=== PATIENT | female | born 1990 | race Hispanic/Latino ===

== ENCOUNTER 2016-09-15 12:05 | Inpatient (IN) | payer OTHER ==
[~2016-09-15] VITALS: Ht 147.3 cm; Wt 61.0 kg
[2016-09-15] VITALS (46 sets, daily range): BP systolic 121–163; BP diastolic 64–101
[~2016-09-15 12:05] MED LIST: AMOX500C2 PO; CEPH500T PO; CIPR-225 PO; NITR-65 PO; TRAM50TA2 PO
--- OUTSIDE RECORDS SUMMARY | 2016-09-15 12:23 | XMS REPORT | Continuity of Care Document ---
Author Author [facility] Organization [facility] Address Unknown Phone Unavailable Care Team Providers Care General Service Officer Name Role Phone BORA ARCOS MD PCP Insurance Providers Payer Name Policy Number Subscriber Name Relationship Self Pay Arleen Saleh 18 Self / Same As Patient Advance Directives Directive Response Recorded Date/Time Advance Directives No 04/02/16 11:08am Resuscitation Status Full Code 04/02/16 11:08am Chief Complaint and Reason for Visit Chief Complaint -Female Reason for Visit Subchorionic hemorrhage [id number] Problems Active Problems Medical Problem Onset Date Status Pyelonephritis Unknown Acute Spontaneous Unknown Acute Subchorionic hemorrhage Unknown Acute Threatened miscarriage in early Unknown Acute Urinary tract infection Unknown Acute Urinary tract infection Unknown Acute Medications Current Home Medications Medication Dose Units Route Directions Days/Qty Instructions Start Date Ciprofloxacin Hcl 500 Mg 500 Mg Oral Twice A Day 20 05/30/15 Past Home Medications Medication Directions Ordered Status Nitrofurantoin Macrocrystals 100 Mg Capsule, 1 Each Oral Twice A Day Discontinued Tramadol Hcl 50 Mg Tablet, 50 Mg Oral Every 4HRS as needed for Pain 09/22/14 Discontinued Cephalexin 500 Mg Tablet, 500 Mg Oral Three Times A Day 05/13/15 Discontinued Social History Social History Problem Response Recorded Date/Time Alcohol Use Denies Use 05/30/2015 4:19pm Recreational Drug Use No 05/30/2015 4:19pm Recent Foreign Travel No 04/02/2016 11:06am Recent Infectious Disease Exposure No 04/02/2016 11:06am Hospitalization with Isolation Denies 04/02/2016 11:06am Smoking Status Never a Smoker 04/02/2016 11:08am Recent Hopitalizations No 04/02/2016 11:08am Hospitalization with Isolation Denies 04/02/2016 11:06am Query Response Start Date Stop Date Smoking Status Never a Smoker Hospital Discharge Instructions No hospital discharge instructions. Plan of Care Discharge Date 04/02/16 12:00pm Disposition 01 HOME, SELF-CARE Condition at Discharge Stable Instructions/Education Provided Threatened Miscarriage (DC) Prescriptions See Medication Section Referrals BORA ARCOS MD - Primary Care Physician Additional Instructions/Education 1. 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 Return to ER for any concerns 3. All discharge instructions reviewed with patient and/or family. Voiced understanding. Functional Status No functional status results. Allergies, Adverse Reactions, Alerts No known allergies. Immunizations No immunization records. Vital Signs Acute Vital Signs Vital Response Date/Time Temperature (Fahrenheit) 98.4 degrees F (97.6 - 99.5) 04/02/2016 11:06am Temperature (Calculated Celsius) 36.62545 degrees C (36.4 - 37.5) 04/02/2016 11:06am Temperature Source Temporal 04/02/2016 11:06am Pulse Rate (adult) 62 bpm (60 - 90) 04/02/2016 12:07pm Respiratory Rate 18 bpm (12 - 24) 04/02/2016 12:07pm O2 Sat by Pulse Oximetry 100 % (88 - 100) 04/02/2016 12:07pm Blood Pressure 104/66 mm Hg 04/02/2016 12:07pm Blood Pressure Mean 89 mm Hg 04/02/2016 11:06am Pain Numeric Pain Scale 3 04/02/2016 11:06am Height (Feet) 5 feet 04/02/2016 11:06am Height (Inches) 1 inches 04/02/2016 11:06am Height (Calculated Centimeters) 154.019077 cm 04/02/2016 11:06am Weight (Pounds) 116 pounds 04/02/2016 11:06am Weight (Calculated Kilograms) 52.777450 kilograms 04/02/2016 11:06am Capillary Refill Capillary Refill Less Than 3 Seconds 04/02/2016 11:06am Height 5 ft 1 in Weight 116 lb Body Mass Index 21.9 kg/m^2 Results Pending Laboratory Results Test Name Collection Date/Time Procedures No known history of procedures. Encounters Encounter Location Arrival/Admit Date Discharge/Depart Date Attending Provider Registered Emergency Room [facility] 04/02/16 11:02am KRISTIAN CHOPRA APRN Registered Clinic [facility] 03/16/16 9:45am PEDRO TAFOYA DO Recent Diagnosis
[2016-09-15] MEDS ORDERED: AMPICILLIN INJECTION 2,000 MG in NS (IVPB) 50 ML IV SCH (12:27)
[2016-09-15] MEDS ORDERED: MAGNESIUM 4 GM/100 ML IVPB 100 ML IV SCH (12:30)
[2016-09-15] MEDS ORDERED: CALCIUM GLUC. 10% 4.65 MEQ/10 ML VIAL IV PRN (12:30)
[2016-09-15 12:43] LABS: BASOPHILS % (AUTO) 0 % (0-10); EOSINOPHILS % (AUTO) 1 % (0-10); LYMPHOCYTES # (AUTO) 2.4 X 10^3 (1.0-4.0); LYMPHOCYTES % (AUTO) 33 % (12-44); MEAN CORPUSCULAR HEMOGLOBIN 31 PG (25-34); MEAN CORPUSCULAR HGB CONC 35 G/DL (32-36); MEAN CORPUSCULAR VOLUME 87 FL (80-99); MEAN PLATELET VOLUME 12.3 FL (7.4-10.4); MONOCYTES # (AUTO) 0.6 X 10^3 (0.0-1.0); MONOCYTES % (AUTO) 8 % (0-12); NEUTROPHILS # (AUTO) 4.3 X 10^3 (1.8-7.8); NEUTROPHILS % (AUTO) 58 % (42-75); PLATELET COUNT 194 10^3/uL (130-400); RED BLOOD COUNT 4.59 10^6/uL (4.35-5.85); RED CELL DISTRIBUTION WIDTH 12.6 % (10.0-14.5); WHITE BLOOD COUNT 7.4 10^3/uL (4.3-11.0)
[2016-09-15 13:05] LABS: ALANINE AMINOTRANSFERASE 26 U/L (0-55); ANION GAP 8 MMOL/L (5-14); ASPARTATE AMINO TRANSFERASE 32 U/L (5-34); BILIRUBIN,TOTAL 0.2 MG/DL (0.1-1.0); BLOOD UREA NITROGEN 9 MG/DL (7-18); BUN/CREATININE RATIO 15; CALCIUM 8.6 MG/DL (8.5-10.1); CARBON DIOXIDE 21 MMOL/L (21-32); CHLORIDE 103 MMOL/L (98-107); GFR ESTIMATED > 60; GLUCOSE 72 MG/DL (70-105); LACTATE DEHYDROGENASE 240 U/L (125-220); MAGNESIUM 1.5 MG/DL (1.8-2.4); POTASSIUM 4.2 MMOL/L (3.6-5.0); SODIUM 132 MMOL/L (135-145); URIC ACID 5.6 MG/DL (2.6-7.2)
[2016-09-15] MEDS ORDERED: NS (IVPB) 50 ML ONE (13:12)
[2016-09-15] MEDS: D5 LR IV SOLUTION 1,000 ML IV SCH (13:43)
[2016-09-15] MEDS: MAGNESIUM SULFATE DRIP 500 ML IV SCH (13:43)
--- NOTE | 2016-09-15 13:55 | History & Physical-OB ---
OB - Chief Complaint & HPI Date Date of Admission: Date of Admission: Sep 15, 2016 at 12:05 pm Chief Complaint/History OB-Reason for Admission/Chief: Obstetrical Complication Hx : 2 Hx Para: 1 Expected Date of Delivery: Oct 21, 2016 Gestational Age in Weeks: 34 Gestational Age in Days: 6 Indication for induction: other (severe preeclmapsia) Other reason for admission: 25 yo at 34w6d presented to clinic for follow-up on proteinuria noted last week with no hypertension and no other lab abnormalities at that time. She started having swelling a few days ago and headache 2 days ago. Today in clinic her blood pressure was 160s on first check and 172/102 on repeat. History of Labs O+, RI, HIV/Hep B/RPR NR, G/C, chlamydia neg. Allergies and Home Medications Allergies Coded Allergies: No Known Drug Allergies (Unverified , 09/22/14) Home Medications Amoxicillin 500 Mg Capsule 500 MG PO BID (Reported) OB - History Hx of Present Care: Yes Ultrasounds: Normal mid trimester US Obstetrical Complications: Pre-eclampsia Medical Complications: None Information Induced Hypertension: No Maternal Gestational Diabetes: No Hemorrhage: No Obstetrical History Hx : 2 Hx Para: 0 Hx # Term Pregnancies: 0 Hx # Pregnancies: 0 Number of Living Children: 0 Hx Total # of Abortions (Spona: 1 Hx Multiple Gestation: No Hx Ectopic : No Hx Stillbirth: No Hx Complication: Yes (preeclampsia) Hx Induced Hypertens: No Hx Maternal Gestational Diabet: No Hx Hemorrhage: No Delivery History Hx Blood Disorders: No Patient Past Medical History PMHx: Pyelonephritis SurgHx: None Social History/Family History HIV/AIDS: No Recent Infectious Disease Expo: No Sexually Transmitted Disease: No Alcohol Use: Denies Use Recreational Drug Use: No Smoking Cessation: Never smoker Immunizations Tetanus Booster (TDap): Less than 5yrs (08/24/2016) Date of Influenza Vaccine: May 04, 2016 Rubella: immune RPR/VDRL: Negative GBS Status: Unknown HBsAG: Negative OB - Admission Exam Physical Exam HEENT: NCAT Heart: Rhythm Normal Lungs: Clear Abdomen: Non tender Extremities: Edema Reflexes: Hyperreflexia Present Cervical Dilatation: None Effacement: 0% Station: Ballotable Membranes: Intact Contractions on Admission: None Hayes Scoring Tool (Modified) Dilation (cm): 0/Closed (0) Effacement (%): 0-30% (0) Descent/Station: -3 (0) Cervix Consistency: Medium(1) Cervix Position: Middle/Mid-Position (1) Add 1 point for: Pre-eclampsia (1) Subtract 1 point for: Nulliparity (-1) Hayes Score: 2 Labs Laboratory Tests Test 09/15/16 12:25 Range/Units Alanine Aminotransferase (ALT/SGPT) 26 0-55 U/L Albumin 3.0 L 3.2-4.5 G/DL Alkaline Phosphatase 163 H 40-136 U/L Anion Gap 8 5-14 MMOL/L Aspartate Amino Transf (AST/SGOT) 32 5-34 U/L BUN/Creatinine Ratio 15 Basophils # (Auto) 0.0 0.0-0.1 10^3/uL Basophils (%) (Auto) 0 0-10 % Blood Urea Nitrogen 9 7-18 MG/DL Calcium Level 8.6 8.5-10.1 MG/DL Carbon Dioxide Level 21 21-32 MMOL/L Chloride Level 103 98-107 MMOL/L Creatinine 0.60 0.60-1.30 MG/DL Eosinophils # (Auto) 0.0 0.0-0.3 10^3/uL Eosinophils (%) (Auto) 1 0-10 % Estimat Glomerular Filtration Rate > 60 Glucose Level 72 70-105 MG/DL Hematocrit 40 35-52 % Hemoglobin 14.1 11.5-16.0 G/DL Lactate Dehydrogenase 240 H 125-220 U/L Lymphocytes # (Auto) 2.4 1.0-4.0 X 10^3 Lymphocytes (%) (Auto) 33 12-44 % Magnesium Level 1.5 L 1.8-2.4 MG/DL Mean Corpuscular Hemoglobin 31 25-34 PG Mean Corpuscular Hemoglobin Concent 35 32-36 G/DL Mean Corpuscular Volume 87 80-99 FL Mean Platelet Volume 12.3 H 7.4-10.4 FL Monocytes # (Auto) 0.6 0.0-1.0 X 10^3 Monocytes (%) (Auto) 8 0-12 % Neutrophils # (Auto) 4.3 1.8-7.8 X 10^3 Neutrophils (%) (Auto) 58 42-75 % Platelet Count 194 130-400 10^3/uL Potassium Level 4.2 3.6-5.0 MMOL/L Red Blood Count 4.59 4.35-5.85 10^6/uL Red Cell Distribution Width 12.6 10.0-14.5 % Sodium Level 132 L 135-145 MMOL/L Total Bilirubin 0.2 0.1-1.0 MG/DL Total Protein 6.0 L 6.4-8.2 G/DL Uric Acid 5.6 2.6-7.2 MG/DL White Blood Count 7.4 4.3-11.0 10^3/uL OB - Assessment/Plan/Diagnosis Assessment Assessment: other (25 yo at 34w6d with severe preeclampsia (pr/cr ratio > 2 and BP >160), GBS unknown) Plan Plan: Induction Induction Method: per Misoprostol Protocol Other Plan Severe preeclampsia- magnesium protocol, monitor status closely, will plan to give labetalol for BP >160/110 -CBC, CMP, uric acid, LDH check on admit GBS unknown- ampicillin for prophylaxis due to Copy Copies To 1: BORA ARCOS MD, BETHANY N MD Sep 15, 2016 1:55 pm
[2016-09-15] MEDS ORDERED: CATHETER FLUSH 10 ML SYR IV SCH (14:00)
[2016-09-15] MEDS ORDERED: MISOPROSTOL 100 MCG (CYTOTEC) TAB PV SCH ×2 (14:15→16:00)
[2016-09-15] MEDS ORDERED: OXYTOCIN/NORMAL SALINE 500 ML IV SCH (18:45)
[2016-09-15] MEDS: AMPICILLIN INJECTION 1,000 MG in NS (IVPB) 50 ML IV SCH ×2 (18:57→23:57)
--- NOTE | 2016-09-15 20:52 | OB Labor & Delivery Record ---
L&D History Date of Service Date of Service: Sep 15, 2016 History Expected Date of Delivery: Oct 21, 2016 Gestational Age in Weeks: 34 Hx : 2 Hx Para: 0 Complications Events: Pre-Eclampsia Operative Indications (Cesarea: N/A-Vaginal Delivery Intrapartal Events: Severe Preeclampsia L&D Stage1 Stage One Onset of Labor - Date: Sep 15, 2016 Onset of Labor - Time: 14:00 Duration - Stage I: 23 hours Monitors and Tracing Monitor Mode: External Heart Rate: 135 Station: -2 Presentation: Vertex Vital Signs VS - Last 72 Hours, by Label 09/15/16 09/15/16 09/15/16 09/15/16 12:15 12:30 12:45 13:00 Temp 98.7 Pulse 58 69 69 66 Resp 20 20 20 20 B/P 161/100 152/88 153/94 140/87 O2 Delivery Room Air Room Air Room Air Room Air 09/15/16 09/15/16 09/15/16 09/15/16 13:15 13:30 13:45 13:45 Pulse 61 60 65 65 Resp 18 18 20 B/P 144/99 134/78 121/92 O2 Delivery Room Air Room Air Room Air 09/15/16 09/15/16 09/15/16 09/15/16 14:00 14:00 14:15 14:15 Pulse 70 70 63 63 Resp 20 18 B/P 156/90 151/97 O2 Delivery Room Air Room Air 09/15/16 09/15/16 09/15/16 09/15/16 14:30 14:30 14:45 14:45 Pulse 67 67 62 62 Resp 18 18 B/P 163/98 136/81 O2 Delivery Room Air Room Air 09/15/16 09/15/16 09/15/16 09/15/16 15:00 15:00 15:15 15:15 Pulse 58 58 63 63 Resp 20 20 B/P 146/80 135/85 O2 Delivery Room Air Room Air 09/15/16 09/15/16 09/15/16 09/15/16 15:30 15:30 15:45 16:00 Temp 98.2 Pulse 67 67 62 65 Resp 20 20 18 B/P 142/89 140/89 139/87 Pulse Ox 99 98 O2 Delivery Room Air Room Air Room Air 09/15/16 09/15/16 09/15/16 09/15/16 16:15 16:30 16:30 16:45 Pulse 59 68 68 63 Resp 18 18 18 B/P 144/92 141/93 143/86 Pulse Ox 99 100 99 O2 Delivery Room Air Room Air Room Air 09/15/16 09/15/16 09/15/16 09/15/16 17:00 17:15 17:30 17:30 Pulse 67 67 68 64 Resp 20 20 18 B/P 138/93 134/85 133/81 Pulse Ox 99 100 99 O2 Delivery Room Air Room Air Room Air 09/15/16 09/15/16 09/15/16 09/15/16 17:45 18:00 18:15 18:30 Pulse 67 72 63 71 Resp 18 18 20 20 B/P 132/85 150/96 144/101 142/90 Pulse Ox 99 99 100 99 O2 Delivery Room Air Room Air Room Air Room Air 09/15/16 09/15/16 09/15/16 09/15/16 18:30 18:45 19:00 19:00 Temp 97.6 Pulse 71 62 76 70 Resp 20 18 B/P 138/64 136/67 Pulse Ox 100 100 O2 Delivery Room Air Room Air Rupture of Membranes Spontaneous Ruture of Membrane: Yes Amniotic Membrane Rupture Time: 04:30 Amniotic Membrane Fluid Desc.: Clear Progress/Notes 1999: Resting comfortably at this time, denies concerns. Had one blood pressure of 160 on arrival, no treatable highs since then. Ctx 10/21. FHT 140s, minimal variability, no decels. SVE 2/40/-1. Labs with slightly elevated LDH, but normal hemoglobin, platelets and remainder of LFTs. Significant change with one dose of cytotec, now with Hayes score of 8, will start pitocin. Continue magnesium (monitoring per protocol) and ampicillin. Monitor BP closely and treat if > 160/110. 0805 (09/16): Feeling more pain with contractions, does not want an epidural. Ctx 3-11/21. FHT 130s, minimal variability, early decels. SVE 5/80/-1. SROM earlier this am with clear fluid. Continue pitocin, magnesium and ampicillin, monitor BP closely and FHT closely. L&D Stage2 Stage Two Stage II Date: Sep 16, 2016 Stage II Time: 13:00 Stage II Duration: 5 min Monitors and Tracing Monitor Mode: External Heart Rate: 135 Monitor Decelerations: Variable Detention Variability: Minimal (3-5) (BARBY) Position: Right Occiput Anterior Presentation: Vertex Signs of Distress by FHT Signs of Distress Variable decelerations with pushing Cord Descript/Complications Cord Vessel Description: 3 Vessels Delivery Type Delivery Method: Spontaneous Vaginal Anterior Shoulder: Left Episiotomy/Perineal Laceration Laceraction(s)/Extensions: Yes Episiotomy Description: Vaginal Extension/lac Sutures Used: Vicryl Degree (describe repair) Right periurethral laceration repaired repaired in simple running fashion. Left vaginal wall laceration repaired in simple running fashion. Left labial laceration repaired in running subcuticular fashion. Condition of Delivery Delivery Date & Time: 09/16/2016 at 1305 1 minute Comment: 2 5 minute Comment: 5 Condition of Infant Condition of Infant: Living Exam: No Observed Abnormalities Resuscitation Resuscitation: Bag and Mask L&D Stage3 Stage Three Stage III Date: Sep 16, 2016 Stage III Time: 13:05 Stage III Duration: 15 min Pictocin Pitocin Administration Comment: 30 units/500 cc bolus given after delivery of placenta Placenta Delivery Placenta Delivery: Spontaneous Delivery Summary Summary Total Labor Time 24 hours 300 ml Attending at delivery: Bora Olivera MD Condition of Delivery Post Hemorrhage: No (continued slow bleeding after fundus firm, 800 mcg rectal cytotec given with resolution of bleeding) Condition of Mother Stable Condition of Infant (s) Stable, taken to nursery for further treatment BORA OLIVERA MD Sep 15, 2016 20:52
[2016-09-16] VITALS (69 sets, daily range): BP systolic 119–194; BP diastolic 67–109
[2016-09-16] MEDS: AMPICILLIN INJECTION 1,000 MG in NS (IVPB) 50 ML IV SCH ×2 (04:32→08:40)
[2016-09-16] MEDS: D5 LR IV SOLUTION 1,000 ML IV SCH (04:33)
[2016-09-16] MEDS ORDERED: LIDOCAINE/EPI 1%-1:200,000 (XYLOCAINE) 30 ML VIAL ONE (12:31)
[2016-09-16] MEDS ORDERED: MISOPROSTOL 200 MCG (CYTOTEC) TABLET ONE (13:24)
[2016-09-16] MEDS ORDERED: MISOPROSTOL 200 MCG (CYTOTEC) TABLET PR ONE (14:15)
[2016-09-16] MEDS ORDERED: OXYTOCIN/NORMAL SALINE 500 ML IV SCH (15:25)
[2016-09-16] MEDS ORDERED: WITCH HAZEL(TUCKS) 40 EA JAR TOP PRN (15:30)
[2016-09-16] MEDS ORDERED: BENZOCAINE/MENTHOL (DERMOPLAST) 56 ML CAN TP PRN (15:30)
[2016-09-16] MEDS: HYDROcodone/APAP 5 MG/325 MG (LORTAB) TAB PO PRN (16:22)
[2016-09-16 17:24] LABS: BASOPHILS % (AUTO) 0 % (0-10); EOSINOPHILS % (AUTO) 0 % (0-10); LYMPHOCYTES # (AUTO) 1.1 X 10^3 (1.0-4.0); LYMPHOCYTES % (AUTO) 4 % (12-44); MEAN CORPUSCULAR HEMOGLOBIN 31 PG (25-34); MEAN CORPUSCULAR HGB CONC 36 G/DL (32-36); MEAN CORPUSCULAR VOLUME 86 FL (80-99); MEAN PLATELET VOLUME 11.8 FL (7.4-10.4); MONOCYTES # (AUTO) 1.7 X 10^3 (0.0-1.0); MONOCYTES % (AUTO) 6 % (0-12); NEUTROPHILS # (AUTO) 23.5 X 10^3 (1.8-7.8); NEUTROPHILS % (AUTO) 90 % (42-75); PLATELET COUNT 200 10^3/uL (130-400); RED BLOOD COUNT 4.25 10^6/uL (4.35-5.85); RED CELL DISTRIBUTION WIDTH 12.4 % (10.0-14.5); WHITE BLOOD COUNT 26.3 10^3/uL (4.3-11.0)
[2016-09-16 17:43] LABS: ALANINE AMINOTRANSFERASE 24 U/L (0-55); ALBUMIN 2.4 G/DL (3.2-4.5); ANION GAP 11 MMOL/L (5-14); ASPARTATE AMINO TRANSFERASE 30 U/L (5-34); BILIRUBIN,TOTAL 0.2 MG/DL (0.1-1.0); BLOOD UREA NITROGEN 10 MG/DL (7-18); BUN/CREATININE RATIO 14; CARBON DIOXIDE 15 MMOL/L (21-32); CHLORIDE 99 MMOL/L (98-107); CREATININE SERUM 0.73 MG/DL (0.60-1.30); GFR ESTIMATED > 60; GLUCOSE 238 MG/DL (70-105); LACTATE DEHYDROGENASE 330 U/L (125-220); POTASSIUM 3.8 MMOL/L (3.6-5.0); TOTAL PROTEIN 4.7 G/DL (6.4-8.2); URIC ACID 6.5 MG/DL (2.6-7.2)
[2016-09-16 17:46] LABS: CALCIUM 5.9 MG/DL (8.5-10.1); MAGNESIUM 6.1 MG/DL (1.8-2.4); SODIUM 125 MMOL/L (135-145)
[2016-09-16] MEDS ORDERED: NS IV 1000 ML 1,000 ML IV SCH (18:00)
[2016-09-16 19:28] LABS: ANION GAP 9 MMOL/L (5-14); BLOOD UREA NITROGEN 10 MG/DL (7-18); BUN/CREATININE RATIO 15; CARBON DIOXIDE 17 MMOL/L (21-32); CHLORIDE 99 MMOL/L (98-107); CREATININE SERUM 0.68 MG/DL (0.60-1.30); GFR ESTIMATED > 60; GLUCOSE 206 MG/DL (70-105); POTASSIUM 3.8 MMOL/L (3.6-5.0)
[2016-09-16 19:32] LABS: CALCIUM 5.9 MG/DL (8.5-10.1); SODIUM 125 MMOL/L (135-145)
[2016-09-16] MEDS ORDERED: SODIUM CHLORIDE 3% 500 ML IV SCH (19:45)
[2016-09-16] MEDS: DOCUSATE SODIUM 100 MG (COLACE) CAP PO SCH (19:59)
[2016-09-16] MEDS ORDERED: CALCIUM GLUCONATE 10% INJ 4.65 MEQ in NS (IVPB) 50 ML IV NR (20:15)
[2016-09-16] MEDS: MAGNESIUM SULFATE DRIP 500 ML IV SCH ×2 (20:46)
[2016-09-16 22:21] LABS: ANION GAP 8 MMOL/L (5-14); BLOOD UREA NITROGEN 9 MG/DL (7-18); BUN/CREATININE RATIO 14; CALCIUM 6.3 MG/DL (8.5-10.1); CARBON DIOXIDE 19 MMOL/L (21-32); CHLORIDE 103 MMOL/L (98-107); CREATININE SERUM 0.63 MG/DL (0.60-1.30); GFR ESTIMATED > 60; GLUCOSE 126 MG/DL (70-105); SODIUM 130 MMOL/L (135-145)
[2016-09-17] VITALS (16 sets, daily range): BP systolic 106–140; BP diastolic 40–92
[2016-09-17] MEDS: HYDROcodone/APAP 5 MG/325 MG (LORTAB) TAB PO PRN (00:33)
[2016-09-17 06:16] LABS: BASOPHILS % (AUTO) 0 % (0-10); EOSINOPHILS % (AUTO) 0 % (0-10); LYMPHOCYTES # (AUTO) 1.4 X 10^3 (1.0-4.0); LYMPHOCYTES % (AUTO) 10 % (12-44); MEAN CORPUSCULAR HEMOGLOBIN 31 PG (25-34); MEAN CORPUSCULAR HGB CONC 36 G/DL (32-36); MEAN CORPUSCULAR VOLUME 88 FL (80-99); MEAN PLATELET VOLUME 12.2 FL (7.4-10.4); MONOCYTES % (AUTO) 7 % (0-12); NEUTROPHILS # (AUTO) 12.4 X 10^3 (1.8-7.8); NEUTROPHILS % (AUTO) 84 % (42-75); PLATELET COUNT 157 10^3/uL (130-400); RED BLOOD COUNT 3.77 10^6/uL (4.35-5.85); RED CELL DISTRIBUTION WIDTH 12.9 % (10.0-14.5); WHITE BLOOD COUNT 14.8 10^3/uL (4.3-11.0)
[2016-09-17 06:39] LABS: ALANINE AMINOTRANSFERASE 22 U/L (0-55); ALBUMIN 2.3 G/DL (3.2-4.5); ANION GAP 7 MMOL/L (5-14); ASPARTATE AMINO TRANSFERASE 32 U/L (5-34); BILIRUBIN,TOTAL 0.2 MG/DL (0.1-1.0); BLOOD UREA NITROGEN 10 MG/DL (7-18); BUN/CREATININE RATIO 17; CARBON DIOXIDE 20 MMOL/L (21-32); CHLORIDE 104 MMOL/L (98-107); GFR ESTIMATED > 60; GLUCOSE 95 MG/DL (70-105); LACTATE DEHYDROGENASE 429 U/L (125-220); POTASSIUM 3.9 MMOL/L (3.6-5.0); SODIUM 131 MMOL/L (135-145); TOTAL PROTEIN 4.7 G/DL (6.4-8.2); URIC ACID 5.4 MG/DL (2.6-7.2)
[2016-09-17] MEDS: MAGNESIUM SULFATE DRIP 500 ML IV SCH (06:39)
[2016-09-17 06:41] LABS: CALCIUM 5.8 MG/DL (8.5-10.1)
[2016-09-17] MEDS: PRENATAL VITAMIN 1 EA TAB PO SCH (08:16)
[2016-09-17] MEDS: DOCUSATE SODIUM 100 MG (COLACE) CAP PO SCH ×2 (08:16→20:22)
--- NOTE | 2016-09-17 12:18 | Progress Note (SOAP) ---
Subjective Subjective/Events-last exam Patient states that she is feeling better this AM. Having some blurry vision but it is improved. Denies any chest pain or shortness of breath. Blood pressures have been stable overnight. Tolerating PO. Good UOP. Date seen by provider: Sep 17, 2016 Objective Exam Last Set of Vital Signs Vital Signs Date Time Temp Pulse Resp B/P Pulse Ox O2 Delivery O2 Flow Rate FiO2 09/17/16 11:15 101 09/17/16 11:15 20 113/80 Room Air 09/17/16 08:00 99.6 100 Capillary Refill : I&O Intake and Output 09/16/16 23:59 Intake Total 1785 ml Output Total 575 ml Balance 1210 ml Intake Oral 180 ml IV Total 1605 ml Output Urine Total 575 ml General: Alert, Oriented X3, Cooperative Lungs: Clear to Auscultation, Normal Air Movement Heart: Regular Rate, Normal S1, Normal S2, No Murmurs Abdomen: Normal Bowel Sounds, Soft, No Tenderness, No Masses Extremities: No Edema, No Tenderness/Swelling Psych/Mental Status: Mental Status NL Results/Procedures Lab Laboratory Tests 09/16/16 17:16: Alanine Aminotransferase (ALT/SGPT) 24, Albumin 2.4L, Alkaline Phosphatase 126, Anion Gap 11, Aspartate Amino Transf (AST/SGOT) 30, BUN/Creatinine Ratio 14, Basophils # (Auto) 0.0, Basophils (%) (Auto) 0, Blood Urea Nitrogen 10, Calcium Level 5.9*L, Carbon Dioxide Level 15L, Chloride Level 99, Creatinine 0.73, Eosinophils # (Auto) 0.0, Eosinophils (%) (Auto) 0, Estimat Glomerular Filtration Rate > 60, Glucose Level 238H, Hematocrit 37, Hemoglobin 13.3, Lactate Dehydrogenase 330H, Lymphocytes # (Auto) 1.1, Lymphocytes (%) (Auto) 4L , Magnesium Level 6.1*H, Mean Corpuscular Hemoglobin 31, Mean Corpuscular Hemoglobin Concent 36, Mean Corpuscular Volume 86, Mean Platelet Volume 11.8H, Monocytes # (Auto) 1.7H, Monocytes (%) (Auto) 6, Neutrophils # (Auto) 23.5H, Neutrophils (%) (Auto) 90H, Platelet Count 200, Potassium Level 3.8, Red Blood Count 4.25L, Red Cell Distribution Width 12.4, Sodium Level 125*L, Total Bilirubin 0.2, Total Protein 4.7L, Uric Acid 6.5, White Blood Count 26.3H 09/16/16 18:37: Anion Gap 9, BUN/Creatinine Ratio 15, Blood Urea Nitrogen 10, Calcium Level 5.9* L, Carbon Dioxide Level 17L, Chloride Level 99, Creatinine 0.68, Estimat Glomerular Filtration Rate > 60, Glucose Level 206H, Potassium Level 3.8, Sodium Level 125*L 09/16/16 21:58: Anion Gap 8, BUN/Creatinine Ratio 14, Blood Urea Nitrogen 9, Calcium Level 6.3L , Carbon Dioxide Level 19L, Chloride Level 103, Creatinine 0.63, Estimat Glomerular Filtration Rate > 60, Glucose Level 126H, Potassium Level 4.0, Sodium Level 130L 09/17/16 05:42: Alanine Aminotransferase (ALT/SGPT) 22, Albumin 2.3L, Alkaline Phosphatase 125, Anion Gap 7, Aspartate Amino Transf (AST/SGOT) 32, BUN/Creatinine Ratio 17, Basophils # (Auto) 0.0, Basophils (%) (Auto) 0, Blood Urea Nitrogen 10, Calcium Level 5.8*L, Carbon Dioxide Level 20L, Chloride Level 104, Creatinine 0.60, Eosinophils # (Auto) 0.0, Eosinophils (%) (Auto) 0, Estimat Glomerular Filtration Rate > 60, Glucose Level 95, Hematocrit 33L, Hemoglobin 11.8, Lactate Dehydrogenase 429H, Lymphocytes # (Auto) 1.4, Lymphocytes (%) (Auto) 10L , Mean Corpuscular Hemoglobin 31, Mean Corpuscular Hemoglobin Concent 36, Mean Corpuscular Volume 88, Mean Platelet Volume 12.2H, Monocytes # (Auto) 1.0, Monocytes (%) (Auto) 7, Neutrophils # (Auto) 12.4H, Neutrophils (%) (Auto) 84H, Platelet Count 157, Potassium Level 3.9, Red Blood Count 3.77L, Red Cell Distribution Width 12.9, Sodium Level 131L, Total Bilirubin 0.2, Total Protein 4.7L, Uric Acid 5.4, White Blood Count 14.8H Assessment/Plan Assessment/Plan Plan 25 yo that delivered female via @ ~35 weeks, for severe preeclampsia, Day 2 Plan Severe Preeclampsia - Continue magnesium for 24 hrs post del (12 today) - Continue to monitor blood pressures and labs - Continue to monitor UOP Vaginal Delivery - Pain well controlled, Encouraged ambulation after Magnesium is stopped - Pumping for NICU - Hgb stable Plan for d/c tomorrow AM f/u 1 week with Yeager for blood pressure check and then 6 weeks for routine post visit Diagnosis/Problems: Clinical Quality Measures DVT/VTE Risk/Contraindication: Risk Factor Score Per Nursin RFS Level Per Nursing on Admit: 1=Low/No VTE PPX CARON PRINCE MD Sep 17, 2016 12:18
[2016-09-17] MEDS: IBUPROFEN 600 MG (MOTRIN) TAB PO SCH ×2 (13:49→20:22)
[2016-09-18 01:00] VITALS: BP 114/73
[2016-09-18] MEDS: IBUPROFEN 600 MG (MOTRIN) TAB PO SCH (05:22)
[2016-09-18 05:30] VITALS: BP 132/84
[2016-09-18 07:30] VITALS: BP 122/73
[2016-09-18] MEDS: DOCUSATE SODIUM 100 MG (COLACE) CAP PO SCH (08:04)
[2016-09-18] MEDS: PRENATAL VITAMIN 1 EA TAB PO SCH (08:06)
[2016-09-18] MEDS ORDERED: PNV1TABL67 PO (09:10)
--- NOTE | 2016-09-18 09:15 | Discharge Instructions ---
Discharge Inst-Women's Serv Depart Medications New, Converted or Re-Newed RX: Other (No new scripts) Final Diagnosis Severe Pre eclampsia Vaginal Delivery of Female New Medications: Pnv with Ca,No.72/Iron/FA (Pnv Plus Multivit Tab) 1 Each Tablet 1 EA PO DAILY@0700 #90 TAB Discontinued Medications: Amoxicillin (Amoxicillin) 500 Mg Capsule 500 MG PO BID CAP Follow Up/Instructions Goal/Follow Up: You will need to follow up with Dr Olivera in 1 week for blood pressure check You will need a [address] Olivera Patient Instructions: It is very important that you stay well hydrated Continue to pump for you baby Activity Activity: Activity as Tolerated Driving Instructions: No Driving for 4 Weeks NO SMOKING: NO SMOKING Nothing Inside Vagina: No Douching, No [place], No Tampons Diet Discharge Diet: No Restrictions Return to The Hospital For: Blurry vision Chest pain Severe Abdominal pain Symptoms to Report to : Numbness/Tingling, Swelling Increased, Bleeding Excessive, Pain Increased, Fever Over 101 Degrees F, Pain/Pressure in Chest, Heart Beat Irreg/Pounding, Lightheadedness, Wt Gain Consecutive Days, Dizziness/ Fainting, Shortness of Breath For Any Problems or Questions: Contact Your Physician Skin/Wound Care Bathing Instructions: Shower Copies To 1: BORA OLIVERA MD, HOLLY R MD Sep 18, 2016 09:15
--- NOTE | 2016-09-18 09:17 | Discharge Summary ---
Diagnosis/Chief Complaint Date of Admission Sep 15, 2016 at 12:05 Date of Discharge 09/18/2016 Admission Diagnosis Admission Diagnosis Severe Preeclampsia Discharge Diagnosis Severe Preeclampsia Vaginal Delivery of Female infant Chief Complaint/HPI Chief Complaint/HPI Admitted for proteinuria and elevated blood pressure from clinic for IOL by Dr Olivera Discharge Summary-Simple/Stand Procedures Vaginal Delivery Laceration Repair Discharge Physical Examination Allergies: Coded Allergies: No Known Drug Allergies (Unverified , 09/22/14) Vitals & I&Os Vital Sign - Last 12Hours Date Time Temp Pulse Resp B/P Pulse Ox O2 Delivery O2 Flow Rate FiO2 09/18/16 07:30 98.1 58 20 122/73 98 Room Air Intake and Output 09/18/16 00:00 Intake Total 1175 ml Output Total 1225 ml Balance -50 ml General Appearance: Alert, Oriented X3, Cooperative, No Acute Distress HEENT: Atraumatic, EOMI, Mucous Memb Moist/[place] Respiratory: Clear to Auscultation, Normal Air Movement Cardiovascular: Regular Rate, Normal S1, Normal S2, No Murmurs Abdominal: Normal Bowel Sounds, Soft, No Tenderness, No Hepatosplenomegaly, No Masses Extremities: No Tenderness/Swelling, Other (1+ Edema, improving) Skin: No Rashes, No Breakdown Neuro: Normal Gait, Normal Speech, Strength at 5/5 X4 Ext, Sensation Intact, Cranial Nerves 3-12 NL, Reflexes 2+ Psych/Mental Status: Mental Status NL, Mood NL Hospital Course See final discharge diagnosis. Pending Labs None Discussion & Recommendations 25 yo F that was admitted for IOL 2/2 severe preeclampsia [address] Magnesium drip. Deliver female infant. Continue magnesium for 24 hr post delivery. Blood pressures well controlled post delivery without treatment. Pumping for infant. Blurry vision improved. Will have close follow up outpatient Follow up: [address] Olivera for blood pressure check Discharge Condition at discharge Stable Instructions to patient/family Please see electonic discharge instructions given to patient. Discharge Medications Reviewed and agree with Discharge Medication list on patient's Discharge Instruction sheet Clinical Quality Measures DVT/VTE Risk/Contraindication: Risk Factor Score Per Nursin RFS Level Per Nursing on Admit: 1=Low/No VTE PPX Copy Copies To 1: BORA OLIVERA MD, HOLLY R MD Sep 18, 2016 09:16
[2016-09-18 15:56] LABS: CALCIUM IONIZED 0.82 mmol/L (1.16-1.32); CORRECTED IONIZED CALCIUM 0.78 mmol/L (1.16-1.32)
[2016-09-19 07:38] LABS: CALCIUM PH 7.32
== END 2016-09-18 10:05 | disposition home or self-care (01) | DRG 774 ==
LOC: LDRP 12:05
PROVIDERS: ADMIT Family Medicine; ATTEND Family Medicine
PROC: 10E0XZZ Delivery of Products of Conception, External Approach (ICD-10-PCS; principal; 2016-09-16)
PROC: 0HQ9XZZ Repair Perineum Skin, External Approach (ICD-10-PCS; 2016-09-16)
DX: O14.13 Severe pre-eclampsia, third trimester (principal); O70.0 First degree perineal laceration during delivery; Z3A.35 35 weeks gestation of pregnancy; Z37.0 Single live birth
CPT/HCPCS: 36415; 80048; 80053; 82330; 83615; 83735; 84550; 85025; 86850; 86900; 86901; 88307

== ENCOUNTER 2022-07-21 14:25 | Outpatient (CLI) | payer SELFPAY ==
[~2022-07-21] VITALS: Ht 147.3 cm; Wt 52.3 kg
[~2022-07-21 14:25] MED LIST changes: +PNV1TABL67 PO
[2022-07-21] MEDS ORDERED: BIRTH CONTROL (14:38)
[2022-07-22] MEDS ORDERED: IBUP-1773 PO (11:31)
[2022-07-22] MEDS ORDERED: FERR325T24 PO (12:03)
[2022-07-22] MEDS ORDERED: MULT-1136 PO (12:03)
[2022-07-22] MEDS ORDERED: DESO1TAB PO (12:03)
== END 2022-07-21 14:43 | disposition home or self-care (01) ==
LOC: PREOP 14:25
PROVIDERS: ATTEND Obstetrics & Gynecology
DX: Z01.818 Encounter for other preprocedural examination (principal)

== ENCOUNTER 2022-07-22 09:19 | Day surgery (SDC) | payer OTHER ==
[~2022-07-22] VITALS: Ht 147 cm; Wt 52.3 kg
[2022-07-22] VITALS (11 sets, daily range): BP systolic 83–123; BP diastolic 46–82
[~2022-07-22 09:19] MED LIST changes: +BIRTH CONTROL
[2022-07-22] MEDS ORDERED: LACTATED RINGERS 1,000 ML IV PRN (10:00)
[2022-07-22] MEDS ORDERED: proPOfol 200 MG/20 ML (DIPRIVAN) VIAL IV ONE (10:05)
[2022-07-22] MEDS ORDERED: ONDANSETRON 4 MG/2 ML (SDV) Z0FRAN ONE (10:05)
[2022-07-22] MEDS ORDERED: MIDAZOLAM 2 MG/2 ML (VERSED) VIAL ONE ×2 (10:05→10:52)
[2022-07-22] MEDS ORDERED: fentaNYL INJ 100 MCG/2 ML AMP ONE (10:05)
[2022-07-22] MEDS ORDERED: LIDOCAINE PF 2% 5 ML (XYLOCAINE) VIAL ONE (10:05)
[2022-07-22 10:34] LABS: BASOPHILS % (AUTO) 1 % (0-10); EOSINOPHILS # (AUTO) 0.1 10^3/uL (0.0-0.3); EOSINOPHILS % (AUTO) 1 % (0-10); HEMATOCRIT 36 % (35-52); HEMOGLOBIN 12.2 g/dL (11.5-16.0); LYMPHOCYTES % (AUTO) 31 % (12-44); MEAN CORPUSCULAR HEMOGLOBIN 31 pg (25-34); MEAN CORPUSCULAR HGB CONC 34 g/dL (32-36); MEAN CORPUSCULAR VOLUME 90 fL (80-99); MEAN PLATELET VOLUME 11.3 fL (9.0-12.2); MONOCYTES # (AUTO) 0.3 10^3/uL (0.0-1.0); MONOCYTES % (AUTO) 4 % (0-12); NEUTROPHILS % (AUTO) 63 % (42-75); PLATELET COUNT 245 10^3/uL (130-400); WHITE BLOOD COUNT 6.3 10^3/uL (4.3-11.0)
[2022-07-22] MEDS ORDERED: MIDAZOLAM 2 MG/2 ML (VERSED) VIAL IV ONE (11:00)
[2022-07-22] MEDS ORDERED: KETOROLAC 30 MG/ML VIAL ONE (11:08)
[2022-07-22] MEDS ORDERED: SEVOFLURANE (ULTANE) 15 ML INHAL SOLN ONE (11:24)
[2022-07-22] MEDS ORDERED: ONDANSETRON 4 MG/2 ML (SDV) Z0FRAN IVP PRN ×2 (11:30→11:45)
[2022-07-22] MEDS ORDERED: D5 LR IV SOLUTION 1,000 ML IV SCH (11:30)
[2022-07-22] MEDS ORDERED: KETOROLAC 30 MG/ML VIAL IVP ONE (11:30)
--- NOTE | 2022-07-22 11:30 | Progress Note-Pre Operative ---
Pre-Operative Progress Note Date of Available H&P: Jul 22, 2022 Date H&P Reviewed: Jul 22, 2022 Time H&P Reviewed: 10:45 History & Physical: H&P Reviewed, Patient Examed, No changes noted Pre-Operative Diagnosis: Incomplete AB, Retained POC KADIE HENRY DO Jul 22, 2022 11:30
[2022-07-22] MEDS ORDERED: IBUP-1773 PO (11:31)
[2022-07-22] MEDS ORDERED: morphine INJ 10 MG/ML 1ML (SYR OR VIAL) IVP ONE (11:45)
[2022-07-22] MEDS ORDERED: HYDROcodone/APAP 5 MG/325 MG (LORTAB) TAB PO PRN (11:45)
[2022-07-22] MEDS ORDERED: DESO1TAB PO (12:03)
[2022-07-22] MEDS ORDERED: MULT-1136 PO (12:03)
[2022-07-22] MEDS ORDERED: FERR325T24 PO (12:03)
--- NOTE | 2022-07-22 12:29 | Anesthesia-General Post-Op ---
General Patient Condition Mental Status/LOC: Same as Preop Cardiovascular: Satisfactory Nausea/Vomiting: Absent Respiratory: Satisfactory Pain: Controlled Complications: Absent Post Op Complications Complications None Follow Up Care/Instructions Patient Instructions None needed. Anesthesia/Patient Condition Patient Condition Patient is doing well, no complaints, stable vital signs, no apparent adverse anesthesia problems. No complications reported per nursing. CALVIN MITCHELL CRNA Jul 22, 2022 12:29
--- NOTE | 2022-07-22 18:44 | OPERATIVE REPORT ---
PREOPERATIVE DIAGNOSES: 1. A 31-year-old female with incomplete AB. 2. Retained products of conception. POSTOPERATIVE DIAGNOSES: 1. A 31-year-old female with incomplete AB. 2. Retained products of conception. PROCEDURE: Suction D and C. SURGEON: Kadie Henry MD ANESTHESIA: LMA and general. ESTIMATED BLOOD LOSS: 100 mL URINE OUTPUT: 100 mL drained at the end of the procedure. FLUIDS: 800 mL lactated Ringer's solution. FINDINGS: Grossly normal-appearing external female genitalia. Small to moderate amount of products of conception retrieved on suction D and C. SPECIMEN SENT: Products of conception. INDICATIONS FOR PROCEDURE: This is a 31-year-old female patient who had sought care in my office from [facility] due to concerns of retained products of conception she had undergone a miscarriage earlier this year; however, continued to have irregular bleeding. HCG levels never fully resolved and she was found to have a thickened endometrium with blood flow persistent that would be consistent with retained products of conception. I discussed with the patient proceeding with D and C, removal of the remainder of the products of conception. Risks of the procedure were discussed with the patient in detail. After all of her questions were answered, consent was obtained. DESCRIPTION OF PROCEDURE: The patient was taken to the operating room, operative report dictated. Once in the operating room, anesthesia was administered and found to be adequate, was placed in the dorsal lithotomy position, prepped and draped in normal sterile fashion. A timeout was performed. The bladder was drained using straight catheterization. A weighted speculum inserted to the patient's vagina. Right angle retractor was used to visualize the cervix was grasped at 12 o'clock position using a long Allis clamp. I then gently sounded the uterine cavity was found to be 7 cm. We then gently dilate the cervix using Hanks dilators to maximum dilatation of approximately 1 cm, at which point I performed a gentle sharp curettage using a medium size endometrial curette. A small to moderate amount of products of conception were retrieved. In doing this, I also performed a suction curettage using a [email or web address] suction device and then a rigid curved 8 mm suction curette. This was advanced into the uterus and rotated around the endometrial cavity to obtain all the remaining tissue that would be within the uterus. This was done on several passes after which the suction device was removed. There was no active bleeding noted from the cervix. It is a very mild amount of bleeding after which I removed all the instruments from the patient's vagina. The patient tolerated the procedure well and was taken to recovery area in stable condition. Lap and sponge counts were correct at the end of procedure, instrument counts were correct as well. Job ID: [id number] DocumentID: [id number] Dictated Date: 07/22/2022 11:35:10 Hand Plug Shaper Date: 07/22/2022 18:42:00 Dictated By: KADIE HENRY DO
== END 2022-07-22 13:50 | disposition home or self-care (01) ==
LOC: SDC 09:19
PROVIDERS: ATTEND Obstetrics & Gynecology
DX: O03.4 Incomplete spontaneous abortion without complication (principal)
CPT/HCPCS: 36415; 85025; 86850; 86900; 86901; 87081; 94664